=== PATIENT | female | born 1990 | race Caucasian/White ===

== ENCOUNTER 2019-09-20 16:14 | Emergency (ER) | payer OTHER, SELFPAY ==
[2019-09-20 16:16] VITALS: BP 145/92; PULSE 120; RESP 16; TEMP 36.9; O2SAT 100; BMI 41.2
[2019-09-20] MEDS: 0.9% Normal Saline 1,000 ML 1000 ML IV (17:58)
[2019-09-20] MEDS: proMETHazine 25 MG/ML Syringe 6.25 MG IV (17:58)
[2019-09-20 19:14] LABS: Absolute Lymphocyte Count 0.91 X10^3/uL (0.83-4.51); Basophil# 0.02 X10^3/uL; Basophil% 0.3 % (0-1); Eosinophil# 0.14 X10^3/uL; Eosinophils% 2.1 % (0-5); Hematocrit 43.8 % (37-47); Hemoglobin 14.4 g/dL (12.0-15.0); Lymphocyte # 0.91 X10^3/ul (4.0); Lymphocyte % 13.9 % (19-41); Mean Corp Hgb Conc 32.9 g/dL (32-36); Mean Corpuscular Hgb 28.7 pg (27.0-32.0); Mean Corpuscular Volume 87.3 fL (81-99); Mean Platelet Vol. 9.1 fl (6.2-12.0); Monocyte# 0.39 X10^3/uL; NRBC Flagged by Analyzer 0 % (0-5); Neutrophil # 5.04 X10^3/uL (2.7-7.7); Neutrophil % 77.2 % (47-70); Platelet Count 229 K/mm3 (150-450); RBC Distribution Width CV 13.8 % (11.6-14.6); RBC Distribution Width SD 43.6 fl (35.1-43.9); Red Blood Count 5.02 M/mm3 (4.2-5.4); White Blood Count 6.5 K/mm3 (4.4-11.0)
[2019-09-20 19:26] LABS: Anion Gap 8 (5-15); BUN 4 mg/dL (7-18); BUN/Creat Ratio 8.6 RATIO (10-20); Calcium,Total 8.3 mg/dL (8.5-10.1); Chloride 108 mmol/L (98-107); Creatinine, Serum 0.46 mg/dL (0.55-1.02); EST Glomerular Filtration Rate 168 mL/min (>60); Est Glom Filt Rate - Afr Amer 203 mL/min (>60); Estimated Creatinine Clearance 162.38 ml/min; Glucose 82 mg/dL (74-106); Potassium 3.5 mmol/L (3.5-5.1); Sodium Level 139 mmol/L (136-145)
--- NOTE | 2019-09-20 20:07 | ED.DCSUM_ITS ---
- ER Visit Summary Date of Service: 09/20/19 Chief Complaint: Vomiting History of Present Illness: The patient is a [address] Maier, her OB and Dr. Carlson. She is a G6, P3 at 10 weeks 0 days. She reports that she has had problems with vomiting throughout her . However it is much worse since yesterday. States she is on naproxen 20 times in the past 24 hours. No blood or emesis. No abdominal pain. No diarrhea. Her last bowel was yesterday. No melena or hematochezia. No dysuria frequency. No vaginal bleeding or discharge. No fever or chills. Physical Examination: Vitals: Stable. Afebrile. General: Well-nourished and well-developed. Head: Normocephalic atraumatic. Neck: Supple, no lymphadenopathy. No JVD. Nontender. Cardiovascular: Regular rate and rhythm. No murmurs. Respiratory: No respiratory distress. Clear to auscultation bilaterally. Abdominal: Soft, nontender, nondistended, normal bowel sounds. No guarding, rebound, or peritoneal signs. Gravid uterus. Back: Nontender. Extremities: Nontender, no edema. Skin: Normal color, no rash. Neurologic: Alert and oriented ?3. Cranial nerves II through XII are intact. Normal strength and sensation. Psych: Normal affect. Test Results: CBC shows segmented neutrophils 77 lymphs at 14. Chem-7 shows a chloride of 108, BUN of 4, creatinine 0.46, calcium 8.3. Emergency Department Course and Treatment: Patient was given a dose of Phenergan IV. She was given a liter normal saline. She has had no further vomiting and is resting comfortably. We were unable to get heart tones. She had a bedside ultrasound shows good movement and a good heartbeat. Treatment Plan: Patient will be discharged with Phenergan. Instructed to follow-up with her OB in 1 day for further evaluation and management. Return to the emergency department for any worsening symptoms. Disposition: To home in improved and stable condition. Impression: 1. Vomiting. 2. First trimester . This note was generated with [employer] software. It may contain incorrect words, spelling, and punctuation that were not noted in review of the chart prior to signing ED Disposition - Plan for ED Patient: Disposition: Home or Assisted Living Instructions: Hyperemesis Gravidarum Prescriptions: proMETHazine tablet [Phenergan] 25 mg PO Q6H PRN PRN #10 tab PRN Reason: Nausea Prescription Printed Additional Instructions: Follow up with Dr. Maier in 1-2 days if not improving.
[2019-09-20 20:17] VITALS: BP 138/90; PULSE 102; RESP 17; O2SAT 99
== END 2019-09-20 20:18 | disposition home or self-care (01) ==
LOC: ED 18:24
PROVIDERS: Emergency Provider Emergency Medicine
DX: O26.891 Other specified pregnancy related conditions, first trimester (principal); R11.2 Nausea with vomiting, unspecified; R05 Cough; R51 Headache; O16.1 Unspecified maternal hypertension, first trimester; O99.281 Endocrine, nutritional and metabolic diseases complicating pregnancy, first trimester; E03.9 Hypothyroidism, unspecified; O09.91 Supervision of high risk pregnancy, unspecified, first trimester; Z3A.10 10 weeks gestation of pregnancy; Z79.899 Other long term (current) drug therapy
CPT/HCPCS: 36415; 80048; 85025; 96361; 96374; 99283; J7030

== ENCOUNTER 2019-12-17 17:27 | Emergency (ER) | payer OTHER, SELFPAY ==
[2019-12-17 17:28] VITALS: BP 153/131; PULSE 149; RESP 15; TEMP 36.7; O2SAT 100; BMI 41.5
[2019-12-17 17:44] VITALS: BP 139/108; PULSE 141; RESP 16; O2SAT 98
[2019-12-17 18:11] LABS: Absolute Lymphocyte Count 0.79 X10^3/uL (0.83-4.51); Absolute Neutrophil Count 5.4 X10^3/uL (2.0-7.7); Basophil# 0.02 X10^3/uL; Basophil% 0.3 % (0-1); Eosinophil# 0.02 X10^3/uL; Eosinophils% 0.3 % (0-5); Hematocrit 40.2 % (37-47); Hemoglobin 13.9 g/dL (12.0-15.0); Lymphocyte # 0.79 X10^3/ul (4.0); Lymphocyte % 11.9 % (19-41); Mean Corp Hgb Conc 34.6 g/dL (32-36); Mean Corpuscular Hgb 30.2 pg (27.0-32.0); Mean Corpuscular Volume 87.4 fL (81-99); Mean Platelet Vol. 9.3 fl (6.2-12.0); Monocyte# 0.41 X10^3/uL; Monocyte% 6.2 % (0-10); NRBC Flagged by Analyzer 0 % (0-5); Neutrophil # 5.36 X10^3/uL (2.7-7.7); Neutrophil % 80.4 % (47-70); Platelet Count 193 K/mm3 (150-450); RBC Distribution Width CV 13.7 % (11.6-14.6); White Blood Count 6.7 K/mm3 (4.4-11.0)
[2019-12-17 18:27] LABS: ALB/GLOB Ratio 0.6 RATIO (0.9-2.4); AST(SGOT) 72 U/L (15-37); Alanine Aminotransfer ALT/SGPT 64 U/L (13-56); Albumin, Serum 2.8 g/dL (3.2-5.0); Alkaline Phosphatase 102 U/L (45-117); Anion Gap 10 (5-15); BUN 4 mg/dL (7-18); BUN/Creat Ratio 8.8 RATIO (10-20); Calcium,Total 8.9 mg/dL (8.5-10.1); Chloride 104 mmol/L (98-107); Creatinine, Serum 0.46 mg/dL (0.55-1.02); EST Glomerular Filtration Rate 171 mL/min (>60); Est Glom Filt Rate - Afr Amer 207 mL/min (>60); Estimated Creatinine Clearance 160.91 ml/min; Globulin 4.6 g/dL (2.2-4.2); Glucose 89 mg/dL (74-106); Potassium 3.2 mmol/L (3.5-5.1); Protein, Total 7.4 g/dL (6.4-8.2); Sodium Level 135 mmol/L (136-145)
[2019-12-17] MEDS: Lactated Ringers 1,000 ML 999 ML IV (18:58)
[2019-12-17] MEDS: proMETHazine 25 MG/ML Syringe 6.25 MG IV (18:59)
[2019-12-17 19:27] VITALS: RESP 16
[2019-12-17 20:04] LABS: Bacteria 0 SEEN /hpf (None Seen)
[2019-12-17 20:13] LABS: Color, Urine Amber (Yellow); Glucose, Dipstick Normal (Normal); Leukocyte Esterase-Dipstick 25 /ul (Negative); Nitrite-Dipstick Negative (Negative); Occult Blood-Urine 150 /ul (Negative); Protein-Dipstick 100 mg/dl (Negative); Urine Clarity Sl. Cloudy (Clear); Urine Urobilinogen 4 mg/dl (Normal)
[2019-12-17 20:31] LABS: Ketone-Dipstick 150 mg/dl (Negative); Urine Bilirubin Dipstick 1 mg/dL (Negative)
[2019-12-17 20:32] LABS: Squamous Epithelial Cells - UA 0-5 SEEN /hpf (5-10)
[2019-12-17 20:33] LABS: Mucous, Urine 4+ /hpf (<or=2+)
[2019-12-17 20:34] LABS: Red Blood Cells-Urine 10-25 SEEN /hpf (0-5)
[2019-12-17 20:35] LABS: White Blood Cells 0-5 SEEN /hpf (0-5)
[2019-12-17] MEDS: Ondansetron 4 MG/2 ML Vial IV (20:59)
[2019-12-17 21:01] VITALS: BP 130/92; PULSE 119; RESP 20; O2SAT 98
--- NOTE | 2019-12-17 22:35 | ED.DCSUM_ITS ---
- ER Visit Summary Date of Service: 12/17/19 Chief Complaint: GI bug History of Present Illness: The patient is a 29 F G6, P3 Ab2 at [address] Maier in [place]. Her family has had nausea, vomiting, diarrhea. She has cramping over her abdomen for 3 days. Patient denies any COMMUNITY REPRESENTATIVE or symptoms. She has a history of preeclampsia and gestational diabetes. History of tonsillectomy. Physical Examination: Tachycardic but otherwise vitals unremarkable. Afebrile. Patient appears uncomfortable. Abdomen is soft and nontender. No guarding or rebound. Heart tachycardic but regular. Lungs clear. Skin appears unremarkable. Test Results: heart tones 157. CBC unremarkable. Sodium 135, potassium 3.2, BUN 4, creatinine 0.46. Total bilirubin 1.2, ALT 64, AST 72. Urinalysis unremarkable. Emergency Department Course and Treatment: Patient was treated with fluids and Phenergan. Repeat heart rate was 107. She had continued nausea and pain. She failed p.o. challenge and was subsequently treated with Zofran. After that she had no further vomiting. She continued to have some cramping and diarrhea. Patient was discussed with Dr. Maier. This is what sounds like a gastroenteritis. No further recommendations here. Will recommend outpatient follow-up. Phenergan suppositories. Stay hydrated. Return for any new or worsening issues. Treatment Plan: As above Disposition: Discharged Impression: 1. Nausea, vomiting, diarrhea 2. This note was generated with [employer] software. It may contain incorrect words, spelling, and punctuation that were not noted in review of the chart prior to signing ED Disposition - Plan for ED Patient: Referrals: TAYLOR MILLS [Other]
--- NOTE | 2019-12-17 22:38 | ED.DEP ---
ED Disposition - Plan for ED Patient: Instructions: Self-Care for Vomiting and Diarrhea Prescriptions: proMETHazine suppository [Phenergan] 25 mg RECTAL Q6H PRN PRN #10 suppos. PRN Reason: Nausea Prescription Printed Additional Instructions: Follow up with Dr. Maier
[2019-12-17 22:45] VITALS: PULSE 110; RESP 20; O2SAT 98
== END 2019-12-17 22:46 | disposition home or self-care (01) ==
LOC: ED 18:11
PROVIDERS: Emergency Provider Emergency Medicine
DX: O26.892 Other specified pregnancy related conditions, second trimester (principal); R11.2 Nausea with vomiting, unspecified; R19.7 Diarrhea, unspecified; R10.9 Unspecified abdominal pain; Z3A.22 22 weeks gestation of pregnancy; Z86.32 Personal history of gestational diabetes; Z87.59 Personal history of other complications of pregnancy, childbirth and the puerperium
CPT/HCPCS: 80053; 81001; 85025; 96361; 96374; 96375; 99283; J7120; A4216; J2405

== ENCOUNTER → 2020-12-10 11:22 | Outpatient (CLI) | payer OTHER, SELFPAY ==
[2020-12-10 13:36] LABS: ALB/GLOB Ratio 0.9 RATIO (0.9-2.4); AST(SGOT) 29 U/L (15-37); Alanine Aminotransfer ALT/SGPT 45 U/L (13-56); Albumin, Serum 3.7 g/dL (3.2-5.0); Alkaline Phosphatase 90 U/L (45-117); Anion Gap 10 (5-15); BUN 14 mg/dL (7-18); BUN/Creat Ratio 20.2 RATIO (10-20); Calcium,Total 8.7 mg/dL (8.5-10.1); Chloride 106 mmol/L (98-107); Creatinine, Serum 0.69 mg/dL (0.55-1.02); EST Glomerular Filtration Rate 105 mL/min (>60); Est Glom Filt Rate - Afr Amer 127 mL/min (>60); Globulin 4.2 g/dL (2.2-4.2); Glucose 95 mg/dL (74-106); Potassium 4.1 mmol/L (3.5-5.1); Protein, Total 7.9 g/dL (6.4-8.2); Sodium Level 138 mmol/L (136-145); T4 Free Direct 1.29 ng/dL (0.76-1.46); T4 Total, Thyroxin 11.5 ug/dL (4.8-13.9); Thyroid Stim Hormone (TSH) 2.22 uIU/mL (0.358-3.74)
[2020-12-12 08:35] LABS: T3 Total - Triiodothyronine 1.54 ng/mL (0.6-1.81)
== END ==
DX: Z00.00 Encounter for general adult medical examination without abnormal findings (principal); E03.9 Hypothyroidism, unspecified
CPT/HCPCS: 36415; 80053; 84436; 84439; 84443; 84480

== ENCOUNTER → 2021-01-04 09:19 | Outpatient (CLI) | payer OTHER, SELFPAY ==
--- NOTE | 2021-01-04 13:28 | PFTCOMP_ITS ---
COMPLETE PULMONARY FUNCTION TEST INTERPRETATION Brief HPI: Patient is a 30 year old female, currently under the care of Dr. Carlson, who presents to [facility] for complete pulmonary function tests secondary to diagnosis of dyspnea. Respiratory therapist reports good effort and reproducible results. Interpretation: Forced expiration spirometry shows a mild large airways obstructive ventilatory defect with an FEV1 of 80% predicted. There is a significant bronchodilator response in FVC and FEV1 by strict ATS criteria. Spirograms are of good quality and plateau slowly, indicating slowly emptying areas of the lungs. The respiratory flow volume loop shows decreased expiratory flow rates at high lung volumes consistent with small airways obstruction. Lung volumes by body plethysmography show a decreased total lung capacity at 4.37 L, 82% predicted. All other lung volumes are within normal limits. Diffusion capacity by carbon monoxide is normal at 91% predicted. The airway resistance is normal. No previous pulmonary function tests were available for review. Impression: Partially reversible mild mixed ventilatory defect with preserved diffusion capacity.
== END ==
DX: R06.02 Shortness of breath (principal); R06.2 Wheezing
CPT/HCPCS: 94060; 94726; 94729

== ENCOUNTER 2024-11-30 08:01 | Emergency (ER) | payer OTHER, SELFPAY ==
[2024-11-30] VITALS (8 sets, daily range): BP systolic 135–153; BP diastolic 101–103; PULSE 112–148; RESP 16–22; TEMP 36.9; O2SAT 96–100; BMI 40.1
--- NOTE | 2024-11-30 08:20 | EKG12_ITS ---
Test Reason : SOB/CP Blood Pressure : */* mmHG Vent. Rate : 124 BPM Atrial Rate : 124 BPM P-R Int : 132 ms QRS Dur : 78 ms QT Int : 314 ms P-R-T Axes : 69 39 68 degrees QTcB Int : 451 ms Sinus tachycardia Cannot rule out Anterior infarct , age undetermined Abnormal ECG Confirmed by MAXX HERZOG, FATIMAH ([id number]), editorial cartoonist RAMIN TALLEY ([id number]) on 12/01/2024 7:56:20 AM Referred By: Confirmed By: FATIMAH LILLY MD
--- NOTE | 2024-11-30 08:21 | EDS_ITS ---
HPI History of Present Illness Chief Complaint: Shortness of Breath Narrative Narrative: 34-year-old female past medical history of asthma, hypothyroidism, presents with increasing shortness of breath. She relates history that she caught COVID back in July, which was 4 months ago. That seemed to have made her asthma much worse. She states that she has had multiple rounds of prednisone and steroid bursts as well as took an antibiotic in case it was pneumonia. She finally got a referral to a acid retort operator from her primary care provider. She states that this is the worst it has been in a while and that after she stopped taking the steroid, a few days later her asthma acts up again. She just finished a breathing treatment at home but presents with a dry cough and shortness of breath. She denies any leg swelling, no exacerbating or alleviating factors. No fevers or chills. PFSH PFS Medical History Tonsillectomy planned ADHD Hypothyroid Asthma Home Medications ?Medication ?Instructions ?Recorded ?Last Taken ?Type labetalol 200 mg tablet 200 mg PO DAILY 09/20/19 09/19/19 History levothyroxine 25 mcg tablet 25 mcg PO DAILY 09/20/19 09/20/19 History vits,calcium no.78-iron 1 tab PO DAILY 09/20/19 09/20/19 History fumarate-folic acid 29 mg-1 mg tablet progesterone micronized 200 mg 200 mg PO DAILY 09/20/19 09/19/19 History capsule famotidine 20 mg tablet 20 mg PO PRN PRN GI UPSET 12/17/19 Unknown History promethazine 25 mg rectal 25 mg RECTAL Q6H PRN PRN Nausea 12/17/19 Unknown Rx suppository ##10 prednisone 20 mg tablet 40 mg (2 x 20 mg) PO DAILY 10 days 11/30/24 Unknown Rx #20 tabs Allergy/AdvReac Type Severity Reaction Status Date / Time Sulfa (Sulfonamide AdvReac Other Verified 11/30/24 08:03 Antibiotics) Social History Smoking Status: Never smoker ROS ROS ED ROS Narrative Review of systems positive for shortness of breath, dry cough, increased breathing difficulty after steroids. No chest pain, no leg swelling, no nausea or vomiting. EXAM Physical Exam Narrative Exam Narrative: Afebrile. Vital signs noted. Nontoxic-appearing. Dry cough on examination. PERRL, EOMI. Neck soft and supple without meningismus. Cardiovascular examination does reveal a regular tachycardia. Respiratory examination shows mild tachypnea with occasional expiratory wheezing, moving a fair amount of air. Abdomen is soft and nontender. No pedal edema noted on examination. Const Vital Signs: 11/30/24 08:03 11/30/24 08:13 11/30/24 08:20 Temperature 98.5 F 98.5 F Temperature Source Oral Temporal Pulse Rate 148 H 148 H Respiratory Rate 22 H 22 H Respiratory Effort Respiratory Depth Respiratory Pattern Blood Pressure 135/101 H 135/101 H Blood Pressure Mean 112 112 Pulse Ox 100 100 99 Oxygen Delivery Method Room Air Room Air Room Air 11/30/24 08:21 11/30/24 08:36 11/30/24 10:02 Temperature Temperature Source Pulse Rate 112 H 114 H Respiratory Rate 17 16 Respiratory Effort Short of Breath Labored Respiratory Depth Deep Respiratory Pattern Tachypnea Normal Blood Pressure 153/103 H Blood Pressure Mean 119 Pulse Ox 96 Oxygen Delivery Method Room Air Room Air MDM MDM MDM Narrative Medical decision making narrative: Differential diagnosis includes but not limited to asthma exacerbation versus bronchitis with bronchospasm versus pneumonia versus pneumothorax. I have low suspicion for pulmonary embolism although she is tachycardic she just finished an albuterol nebulizer treatment and her pulse ox is 100% on room air. Chest x- ray 1 view will be obtained and she will be given a DuoNeb aerosolized treatment and a burst of steroid with a loading dose of 60 mg orally here. EKG was obtained and interpreted by myself independently as sinus tachycardia at 124 bpm without ectopy or acute ST changes. No STEMI. Chest x-ray interpreted by myself independently shows no pneumothorax or pneumonia. I do not feel antibiotics are indicated. I reviewed the radiology report which confirms my independent interpretation. Repeat examination shows that her tachycardia has improved, down to 112 bpm. Upon repeat examination, she is moving a good amount of air and does not have wheezing and feels improved. At this point in time, she is motivated for discharge, stating that she has never been admitted for her asthma exacerbations. She states she does better with prednisone bursts at the higher dose of 40 mg rather than a Medrol Dosepak or prednisone taper. She states that her insurance is changing in the next few days and she needs referral to a different acid retort operator than the one that her primary care provider provided for her. She will be referred back to Dr. Ricco Remy. I feel that she can be discharged safely home with follow-up. Return instructions to the emergency department were reviewed. Disposition is discharged home in stable condition. History & Record Review Discussion w/independent historian: Patient Lab Data Attestation: I reviewed the patient's lab results. Radiography Chest X-Ray - ED: 1 View, Read by ED Physician and Read by Radiologist Diagnostic Testing: Clinical Impression(s) from Imaging Studies Chest X-Ray 11/30/24 08:55 IMPRESSION: No radiographic evidence of acute cardiopulmonary disease. Electronically Signed: Best Aj MD at 10:37 EST , Discharge Plan Triage Chief Complaint: Shortness of Breath ED Provider: Tate Jeter Dx/Rx/DC Orders Clinical Impression: Asthma attack, Shortness of breath Instructions: ED Asthma, Acute (Adult) Prescriptions: New prednisone 20 mg tablet 40 mg PO DAILY 10 Days Qty: 20 0RF No Action labetalol 200 MG tablet 200 mg PO DAILY levothyroxine 25 MCG tablet 25 mcg PO DAILY progesterone micronized 200 MG capsule 200 mg PO DAILY vit,[id number] 1 TABLET tablet 1 tab PO DAILY famotidine 20 MG tablet 20 mg PO PRN PRN (Reason: GI UPSET) promethazine 25 MG suppository 25 mg RECTAL Q6H PRN PRN (Reason: Nausea) Qty: 10 0RF Primary Care Provider: ROCIO MILLS Referrals: Ricco Remy, DO [Med Staff - Active Staff] - As soon as possible [facility],Out of [Non-Staff] - Activity Restrictions/Additional Instructions: Take the steroid burst as directed. Return with increasing shortness of breath, new or worsening symptoms. Print Language: Nepali Disposition Disposition: Home, Self Care Discharge Date/Time: 11/30/24 10:29
[2024-11-30] MEDS: predniSONE 20 MG Tablet 60 MG PO (08:24)
[2024-11-30] MEDS: Ipratropium/Albuterol Sulfate 3 ML AMPUL.NEB INHALATION (08:36)
--- NOTE | 2024-11-30 08:55 | RAD_ITS ---
INDICATION: Shortness of breath EXAMINATION/TECHNIQUE: X-RAY - XR Chest 1 View COMPARISON: No relevant prior comparison study available FINDINGS: LINES/DEVICES: None. LUNGS: No consolidation, edema or effusion. No pneumothorax. MEDIASTINUM AND CARDIOVASCULAR STRUCTURES: Cardiac silhouette not enlarged. Central airways and mediastinal contour are unremarkable. BONES AND SOFT TISSUES: Unremarkable. RAD/Chest 1 View (Portable) IMPRESSION: No radiographic evidence of acute cardiopulmonary disease. Electronically Signed: Best Aj MD at 10:37 EST ,
== END 2024-11-30 10:29 | disposition home or self-care (01) ==
PROVIDERS: Emergency Provider Emergency Medicine; PCP Internal Medicine; Visit Provider Emergency Medicine
DX: J45.901 Unspecified asthma with (acute) exacerbation (principal); E03.9 Hypothyroidism, unspecified; R00.0 Tachycardia, unspecified; Z79.890 Hormone replacement therapy; Z79.899 Other long term (current) drug therapy; Z86.16 Personal history of COVID-19
CPT/HCPCS: 71045; 93005; 94640; 99284

== ENCOUNTER → 2025-01-06 | Outpatient (CLI) | payer OTHER, SELFPAY ==
[2025-01-06 14:44] LABS: Absolute Lymphocyte Count 2.73 X10^3/uL (0.83-4.51); Basophil# 0.11 X10^3/uL; Eosinophil# 0.76 X10^3/uL; Eosinophils% 6.8 % (0-5); Hemoglobin 14.5 g/dL (12.0-15.0); Lymphocyte # 2.73 X10^3/ul (0.83-4.51); Lymphocyte % 24.4 % (19-41); Mean Corpuscular Hgb 28.3 pg (27.0-32.0); Mean Corpuscular Volume 85.9 fL (81-99); Mean Platelet Vol. 9.5 fl (6.2-12.0); Monocyte# 0.56 X10^3/uL; NRBC Flagged by Analyzer 0 % (0-5); Neutrophil % 62.4 % (47-70); Platelet Count 421 K/mm3 (150-450); RBC Distribution Width CV 13.2 % (11.6-14.6); RBC Distribution Width SD 40.9 fl (35.1-43.9); Red Blood Count 5.12 M/mm3 (4.2-5.4); White Blood Count 11.2 K/mm3 (4.4-11.0)
[2025-01-12 12:07] LABS: Alternaria alternata <0.10 kU/L (Class 0); Bermuda Grass <0.10 kU/L (Class 0); Bluegrass, Kentucky <0.10 kU/L (Class 0); Cat Hair/Dander, Standard <0.10 kU/L (Class 0); D farinae Mite <0.10 kU/L (Class 0); D pteronyssinus <0.10 kU/L (Class 0); Dog Epithelia <0.10 kU/L (Class 0); Elm, American White <0.10 kU/L (Class 0); Mouse Urine <0.10 kU/L (Class 0); Oak, White <0.10 kU/L (Class 0); Plantain, English <0.10 kU/L (Class 0); Ragweed, Short/Common <0.10 kU/L (Class 0)
[2025-01-13 05:06] LABS: Aspirgillus flavus Negative (Neg:<1:1); Aspirgillus fumigatus Negative (Neg:<1:1); Aspirgillus niger Negative (Neg:<1:1); Cytoplasmic Ab (C-ANCA) <1:20 titer (Neg:<1:20); Immunoglobulin E 11 IU/mL (6-495); Perinuclear Ab (P-ANCA) <1:20 titer (Neg:<1:20)
== END | disposition home or self-care (01) ==
LOC: LAB 13:51
PROVIDERS: PCP Internal Medicine; Referring Provider Nurse Practitioner Acute Care; Visit Provider Nurse Practitioner Acute Care
DX: J30.9 Allergic rhinitis, unspecified (principal)
CPT/HCPCS: 36415; 82785; 85025; 86003; 86037; 86606

== ENCOUNTER → 2025-01-12 | Outpatient (CLI) | payer OTHER, SELFPAY | END | disposition home or self-care (01) | LOC: PSN 08:44 | PROVIDERS: PCP Internal Medicine; Referring Provider Nurse Practitioner Acute Care; Visit Provider Nurse Practitioner Acute Care | DX: J45.909 Unspecified asthma, uncomplicated (principal) | CPT/HCPCS: 94060; 94726; 94729 ==

== ENCOUNTER → 2025-03-03 | Outpatient (CLI) | payer OTHER, SELFPAY ==
[2025-03-03 08:33] LABS: T3 Total - Triiodothyronine 1.45 ng/mL (0.80-2.00); T4 Total, Thyroxin 10.6 ug/dL (4.8-13.9)
[2025-03-03 08:36] LABS: ALB/GLOB Ratio 1.3 RATIO (0.9-2.4); AST(SGOT) 30 U/L (<=31); Alanine Aminotransfer ALT/SGPT 31 U/L (<=34); Alkaline Phosphatase 104 U/L (35-104); Anion Gap 10 (5-15); BUN 9 mg/dL (4-19); Calcium,Total 8.8 mg/dL (7.6-11.0); Carbon Dioxide 23.8 mmol/L (21.0-32.0); Chloride 103 mmol/L (98-108); Creatinine, Serum 0.66 mg/dL (0.70-1.20); EST Glomerular Filtration Rate 117 (>60); Globulin 3.1 g/dL (2.2-4.2); Glucose 106 mg/dL (70-99); Potassium 4.1 mmol/L (3.3-5.1); Protein, Total 7.1 g/dL (5.9-8.4); Sodium Level 137 mmol/L (133-145); Total Bilirubin 0.76 mg/dL (0.00-1.30)
== END | disposition home or self-care (01) ==
LOC: LAB 07:20
PROVIDERS: PCP Internal Medicine; Referring Provider Internal Medicine; Visit Provider Internal Medicine
DX: E03.9 Hypothyroidism, unspecified (principal); I10 Essential (primary) hypertension
CPT/HCPCS: 36415; 80053; 84436; 84439; 84443; 84480